=== PATIENT | female | born 2000 | race Caucasian/White ===

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

== ENCOUNTER 2022-04-28 04:16 | Emergency (ER) | payer BC ==
[~2022-04-28] VITALS: Ht 157.5 cm; Wt 62.7 kg
[~2022-04-28 04:16] MED LIST: CELEXA 20MG20 MG/TAB PO; TRI-SPRINTEC 281 TAB
[2022-04-28 04:19] VITALS: TEMP 98.2
[2022-04-28 05:31] VITALS: BP 117/77; PULSE 84
== END 2022-04-28 05:33 | disposition home or self-care (01) ==
LOC: COL.ER 04:16
DX: H93.8X3 Other specified disorders of ear, bilateral (principal)